=== PATIENT | female | born 1970 | race Caucasian/White ===

== ENCOUNTER 2016-05-09 20:43 | Emergency (ER) | payer SELFPAY ==
[~2016-05-09] VITALS: Ht 160 cm; Wt 59.7 kg
[~2016-05-09 20:43] MED LIST: ZOFR4TAB PO
[2016-05-09 20:50] VITALS: BP 104/71; PULSE 77; RESP 18; TEMP 99.7; O2SAT 97
[2016-05-09] MEDS ORDERED: SODIUM CHLOR 0.9% 1000 ML INJ 1,000 ML IV SCH (22:33)
--- NOTE | 2016-05-09 22:38 | PD ---
HPI . Abdominal pain Chief Complaint: Abdominal Pain Time Seen by Provider: 22:28 Travel History International Travel<30 days: No Contact w/Intl Traveler<30days: No Traveled to known affect area: No History of Present Illness HPI Patient presents with a one day history of generalized abdominal pain associated with vomiting and diarrhea. She has had a subjective fever. She denies any urinary tract symptoms. She states she has not taken anything for it prior to arrival. She reports 7 episodes of emesis and 8-9 episodes of diarrhea. [id number]: Abdominal QUALITY: Cramping DURATION: 12+ hours TIMING: Continuous MODIFYING FACTORS: No exacerbating or relieving symptoms ASSOCIATED SYMPTOMS: Fever, vomiting and diarrhea PFSH Past Medical History Anxiety: Yes Depression: Yes (POST ) Diminished Hearing: No Genitourinary: Yes (FREQUANT UTI'S) ?: Not Past Surgical History Section: Yes Hysterectomy: Yes Social History Alcohol Use: No (FORMER) Tobacco Use: Yes (5-6 CIG/DAY) Substance Use: No Allergies-Medications (Allergen,Severity, Reaction): Coded Allergies: Penicillin (Verified Allergy, Intermediate, SWELLING, 05/09/16) Reported Meds & Prescriptions Reported Meds & Active Scripts Active Reported Multi-Vitamin Daily (Multiple Vitamin) 1 Tab Tab 1 Tab PO DAILY Lexapro (Escitalopram Oxalate) 10 Mg Tab 10 Mg PO DAILY Review of Systems Except as stated in HPI: all other systems reviewed are Neg General / Constitutional: Positive: Fever, Chills Respiratory: No: Cough, Shortness of Breath Gastrointestinal: Positive: Nausea, Vomiting, Diarrhea, Abdominal Pain Genitourinary: No: Urgency, Frequency, Dysuria Physical Exam Narrative GENERAL: Healthy-appearing woman who is in no acute distress. SKIN: Warm and dry. HEAD: Atraumatic. Normocephalic. EYES: Pupils equal and round. ENT: No nasal bleeding or discharge. Mucous membranes pink and moist. NECK: Trachea midline. Neck is supple. CARDIOVASCULAR: Regular rate and rhythm. Heart sounds are normal. RESPIRATORY: No accessory muscle use. Lungs are clear with full air movement throughout. GASTROINTESTINAL: Abdomen soft. Diffusely tender. No guarding or rebound. Nondistended. Positive bowel sounds. No CVA tenderness. MUSCULOSKELETAL: No obvious deformities. No edema. NEUROLOGICAL: Awake and alert. No obvious cranial nerve deficits. Motor grossly within normal limits. Normal speech. PSYCHIATRIC: Appropriate mood and affect; insight and judgment normal. Data Data Last Documented VS Vital Signs Date Time Temp Pulse Resp B/P Pulse Ox O2 Delivery O2 Flow Rate FiO2 05/09/16 20:50 99.7 77 18 104/71 97 Orders Complete Blood Count With Diff (05/09/16 22:33) Comprehensive Metabolic Panel (05/09/16 22:33) Urinalysis - C+S If Indicated (05/09/16 22:33) Iv Access Insert/Monitor (05/09/16 22:33) Morphine Inj (Morphine Inj) (05/09/16 22:45) Ondansetron Inj (Zofran Inj) (05/09/16 22:45) Sodium Chlor 0.9% 1000 Ml Inj (Ns 1000 M (05/09/16 22:33) Sodium Chloride 0.9% Flush (Ns Flush) (05/09/16 22:45) Ed Urine Pregnancytest Poc (05/09/16 22:33) Labs Laboratory Tests Test 05/09/16 05/09/16 22:50 22:55 White Blood Count 5.5 TH/MM3 Red Blood Count 4.55 MIL/MM3 Hemoglobin 14.3 GM/DL Hematocrit 42.6 % Mean Corpuscular Volume 93.8 FL Mean Corpuscular Hemoglobin 31.4 PG Mean Corpuscular Hemoglobin 33.5 % Concent Red Cell Distribution Width 12.3 % Platelet Count 226 TH/MM3 Mean Platelet Volume 6.9 FL Neutrophils (%) (Auto) 73.5 % Lymphocytes (%) (Auto) 20.4 % Monocytes (%) (Auto) 2.7 % Eosinophils (%) (Auto) 1.6 % Basophils (%) (Auto) 1.8 % Neutrophils # (Auto) 4.1 TH/MM3 Lymphocytes # (Auto) 1.1 TH/MM3 Monocytes # (Auto) 0.1 TH/MM3 Eosinophils # (Auto) 0.1 TH/MM3 Basophils # (Auto) 0.1 TH/MM3 CBC Comment DIFF FINAL Differential Comment Sodium Level 143 MEQ/L Potassium Level 3.5 MEQ/L Chloride Level 109 MEQ/L Carbon Dioxide Level 25.5 MEQ/L Anion Gap 9 MEQ/L Blood Urea Nitrogen 12 MG/DL Creatinine 0.62 MG/DL Estimat Glomerular Filtration 103 ML/MIN Rate Random Glucose 113 MG/DL Calcium Level 8.3 MG/DL Total Bilirubin 0.6 MG/DL Aspartate Amino Transf 14 U/L (AST/SGOT) Alanine Aminotransferase 17 U/L (ALT/SGPT) Alkaline Phosphatase 41 U/L Total Protein 6.6 GM/DL Albumin 3.5 GM/DL Urine Collection Type CLEAN CATCH Urine Color CARLEE Urine Turbidity CLEAR Urine pH 6.0 Urine Specific [place] 1.029 Urine Protein TRACE mg/dL Urine Glucose (UA) NEG mg/dL Urine Ketones TRACE mg/dL Urine Occult Blood NEG Urine Nitrite NEG Urine Bilirubin NEG Urine Leukocyte Esterase NEG Urine RBC 0-3 /hpf Urine Squamous Epithelial 0-5 /hpf Cells Urine Mucus MOD /lpf Microscopic Urinalysis Comment CULT NOT INDICATED MDM Medical Decision Making Medical Screen Exam Complete: Yes Emergency Medical Condition: Yes Differential Diagnosis Differential diagnosis of abdominal pain includes but is not limited to gastritis, pancreatitis, hepatitis, gastroenteritis, gallbladder disease, constipation, urinary retention, UTI, peptic ulcer disease, diverticulitis or appendicitis Narrative Course Patient presents with generalized abdominal pain associated with vomiting and diarrhea. She likely has viral gastroenteritis. CBC & BMP Diagram 05/09/16 22:50 LFTs are normal. UA is negative for infection. Diagnosis Primary Impression: Gastroenteritis Patient Instructions: Gastroenteritis (DC), General Instructions Med/Other Pt SpecificInfo: Prescription(s) given Scripts Promethazine (Phenergan)25 Mg Tab25 Mg PO Q6H PRN (Nausea/Vomiting) #10 TAB Ref 0 Prov:Evonne Kunz MD 05/09/16 Disposition: 01 DISCHARGE HOME Condition: Stable Evonne Kunz MD May 09, 2016 22:38
[2016-05-09] MEDS ORDERED: MORPHINE SULFATE 4 MG/ML INJ IV PUSH ONE (22:45)
[2016-05-09] MEDS ORDERED: SODIUM CHLORIDE 0.9% FLUSH 10 ML FLUSH IV FLUSH PRN (22:45)
[2016-05-09] MEDS ORDERED: ONDANSETRON HCL 4 MG/2 ML VIAL IVP ONE (22:45)
[2016-05-09 23:01] LABS: AUTOMATED NEUTROPHIL # 4.1 TH/MM3 (1.8-7.7); BASOPHIL # 0.1 TH/MM3 (0-0.2); BASOPHIL % 1.8 % (0.0-2.0); EOSINOPHIL # 0.1 TH/MM3 (0-0.4); EOSINOPHIL % 1.6 % (0.0-4.0); HEMATOCRIT 42.6 % (35.0-46.0); HEMO FLAGS DIFF FINAL; LYMPH % 20.4 % (9.0-44.0); LYMPHOCYTE # 1.1 TH/MM3 (1.0-4.8); MEAN CELL VOLUME 93.8 FL (80.0-100.0); MEAN CORPUSCULAR HEMOGLOBIN 31.4 PG (27.0-34.0); MEAN CORPUSCULAR HGB CONC 33.5 % (32.0-36.0); MONO % 2.7 % (0.0-8.0); NEUT % 73.5 % (16.0-70.0); PLATELET COUNT 226 TH/MM3 (150-450); RED BLOOD COUNT 4.55 MIL/MM3 (4.00-5.30); RED CELL DISTRIBUTION WIDTH 12.3 % (11.6-17.2); WHITE BLOOD COUNT 5.5 TH/MM3 (4.0-11.0)
[2016-05-09 23:05] LABS: BLOOD, URINE NEG (NEG); GLUCOSE,URINE NEG (NEG); KETONE, URINE TRACE mg/dL (NEG); NITRITE,URINE NEG (NEG)
[2016-05-09 23:14] LABS: CHLORIDE 109 MEQ/L (98-107); POTASSIUM 3.5 MEQ/L (3.5-5.1); SODIUM (NA) 143 MEQ/L (136-145)
[2016-05-09 23:19] LABS: ANION GAP 9 MEQ/L (5-15); BICARBONATE 25.5 MEQ/L (21.0-32.0); BLOOD UREA NITROGEN 12 MG/DL (7-18)
[2016-05-09 23:21] LABS: METHOD OF COLLECTION CLEAN CATCH; MUCUS URINE MOD /lpf (OCC); SQUAMOUS EPITHELIAL CELL URINE 0-5 /hpf (0-5); URINE COLOR AMBER (YELLW/STRAW)
[2016-05-09 23:22] LABS: ALT (GPT) 17 U/L (10-53); AST (GOT) 14 U/L (15-37); GLOMERULAR FILTRATION RATE 103 ML/MIN (>89)
[2016-05-09 23:22] LABS: COMMENT (UR) CULT NOT INDICATED; CULTURE IF INDICATED CULT NOT INDICATED; RBC, URINE 0-3 /hpf (0-3)
[2016-05-09 23:23] LABS: TOTAL BILIRUBIN ADULT 0.6 MG/DL (0.2-1.0)
[2016-05-09 23:25] LABS: ALKALINE PHOSPHATASE 41 U/L (45-117)
[2016-05-09] MEDS ORDERED: MULT-65 PO (23:25)
[2016-05-09] MEDS ORDERED: LEXA10TA PO (23:25)
[2016-05-09] MEDS ORDERED: PROM25TA5 PO (23:47)
[2016-05-09 23:50] VITALS: BP 106/74; PULSE 72; RESP 20; O2SAT 99
[2016-05-10 00:50] VITALS: BP 105/74
== END 2016-05-10 00:50 | disposition home or self-care (01) ==
LOC: PHED 20:43
DX: K52.9 Noninfective gastroenteritis and colitis, unspecified (principal); F41.9 Anxiety disorder, unspecified; F17.210 Nicotine dependence, cigarettes, uncomplicated; Z88.0 Allergy status to penicillin
CPT/HCPCS: 80053; 81001; 85025; 96374; 96375; 99284; J2270; J2405; J7030

== ENCOUNTER 2016-06-09 09:52 | Emergency (ER) | payer SELFPAY ==
[~2016-06-09] VITALS: Ht 172.7 cm; Wt 58.6 kg
[~2016-06-09 09:52] MED LIST changes: +LEXA10TA PO; +MULT-65 PO; +PROM25TA5 PO; -ZOFR4TAB PO
[2016-06-09 09:55] VITALS: BP 99/70; PULSE 67; RESP 16; TEMP 98.8; O2SAT 98
--- NOTE | 2016-06-09 10:37 | RADHPO ---
EXAM DATE/TIME: 06/09/2016 10:21 [facility] COMPARISON: CHEST PA & LAT, April 27, 2015, 10:01. INDICATIONS : Cough. Sore throat. Aches in chest & back. MEDICAL HISTORY : None. SURGICAL HISTORY : Colon resection. Hysterectomy. ENCOUNTER: Initial ACUITY: 3 days PAIN SCORE: 5/10 LOCATION: chest FINDINGS: PA and lateral views of the chest demonstrate the lungs to be symmetrically aerated without evidence of mass, infiltrate or effusion. The cardiomediastinal contours are unremarkable. Osseous structure s are intact.CONCLUSION: Normal examination. Mac Woods Jr., MD on June 09, 2016 at 10:35 Board Certified Radiologist. This report was verified electronically.
[2016-06-09] MEDS ORDERED: MUCI30TA2 PO (10:40)
[2016-06-09] MEDS ORDERED: BENZ100 PO (10:40)
--- NOTE | 2016-06-09 10:41 | PD ---
HPI Chief Complaint: Cold / Flu Symptoms Time Seen by Provider: 10:00 Travel History International Travel<30 days: No Contact w/Intl Traveler<30days: No Traveled to known affect area: No History of Present Illness HPI Patient 45-year-old female who presents with cough dry for the past 3-4 days. Patient states cough is keeping her up at night which is why she came in. She denies any fevers. Denies any earache or sore throat. Denies any abdominal pain chest pain shortness of breath. Patient states that she is a smoker but has not been able to smoke recently given her illness. States this happened to her in the past she's been diagnosed bronchitis. Symptoms are mild, they are slowly worsening. PFSH Past Medical History Hx Anticoagulant Therapy: No Anxiety: Yes Depression: Yes (POST ) Cardiovascular Problems: No Chemotherapy: No Cerebrovascular Accident: No Diabetes: No Diminished Hearing: No Genitourinary: Yes Respiratory: No Tetanus Vaccination: Unknown Influenza Vaccination: No ?: Not Past Surgical History Section: Yes (x3) Hysterectomy: Yes Social History Alcohol Use: No (social) Tobacco Use: Yes (2-3 CIGS PER DAY ) Substance Use: No Allergies-Medications (Allergen,Severity, Reaction): Coded Allergies: Penicillin (Verified Allergy, Intermediate, SWELLING, 06/09/16) Reported Meds & Prescriptions Reported Meds & Active Scripts Active Tessalon Perles (Benzonatate) 100 Mg Cap 100 Mg PO TID PRN Mucinex DM (Dextromethorphan-Guaifenesin) 30-600 Mg Tab 1 Tab PO BID PRN Reported Multi-Vitamin Daily (Multiple Vitamin) 1 Tab Tab 1 Tab PO DAILY Lexapro (Escitalopram Oxalate) 10 Mg Tab 10 Mg PO DAILY Review of Systems Except as stated in HPI: all other systems reviewed are Neg Physical Exam Narrative GENERAL: Well-nourished, well-developed patient. SKIN: No rash no wound on her person. HEAD: Normocephalic. EYES: No scleral icterus. No injection or drainage. NECK: Supple, trachea midline. No JVD or lymphadenopathy. ENT: TMs clear bilaterally, oropharynx pink and moist. CARDIOVASCULAR: Regular rate and rhythm without murmurs, gallops, or rubs. RESPIRATORY: Breath sounds equal bilaterally. No accessory muscle use. GASTROINTESTINAL: Abdomen soft, non-tender, nondistended. MUSCULOSKELETAL: No cyanosis, or edema. BACK: Nontender without obvious deformity. No CVA tenderness. Data Data Last Documented VS Vital Signs Date Time Temp Pulse Resp B/P Pulse Ox O2 Delivery O2 Flow Rate FiO2 06/09/16 10:55 79 16 100/79 97 06/09/16 10:29 Room Air 06/09/16 09:55 98.8 Orders Chest, Pa & Lat (06/09/16 ) MDM Medical Decision Making Medical Screen Exam Complete: Yes Emergency Medical Condition: Yes Differential Diagnosis Bronchitis, pneumonia, cough Narrative Course Patient was roomed in emergency department, she appears well in no apparent distress. Chest x-ray was negative. There is no indication for an box at this time. Discussed symptomatically management and return to ED criteria. Discussed need for follow-up the primary care physician and recommended smoking cessation. Diagnosis Primary Impression: Bronchitis Additional Instructions: Recommends stopping smoking, smoking carries with it several adverse health risks including heart attack stroke cancers and chronic lung disease. It is difficult to quit smoking and most smokers have problems quitting initially this should not discourage her from trying to quit again. Med/Other Pt SpecificInfo: Prescription(s) given Scripts Benzonatate (Tessalon Perles)100 Mg Ecd025 Mg PO TID PRN (COUGH) #20 CAP Ref 0 Prov:Ralph Hurd MD 06/09/16 Dextromethorphan-Guaifenesin (Mucinex DM)30-600 Mg Tab1 Tab PO BID PRN (CHEST CONGESTION AND/OR COUGH) #30 TAB Ref 0 Prov:Ralph Hurd MD 06/09/16 Disposition: 01 DISCHARGE HOME Condition: Stable Ralph Hurd MD June 09, 2016 10:41
[2016-06-09 10:55] VITALS: BP 100/79
== END 2016-06-09 10:55 | disposition home or self-care (01) ==
LOC: PHED 09:52
DX: J40 Bronchitis, not specified as acute or chronic (principal); Z72.0 Tobacco use
CPT/HCPCS: 71020; 99283

== ENCOUNTER 2016-12-17 18:51 | Emergency (ER) | payer SELFPAY ==
[~2016-12-17] VITALS: Ht 160 cm; Wt 58.8 kg
[~2016-12-17 18:51] MED LIST changes: +BENZ100 PO; +HUMIBIDDM PO; -PROM25TA5 PO
[2016-12-17 19:17] VITALS: BP 125/62; PULSE 50; RESP 18; TEMP 98.2; O2SAT 99
[2016-12-17 19:51] VITALS: BP 128/62; PULSE 97; RESP 16; O2SAT 100
[2016-12-17] MEDS ORDERED: SODIUM CHLOR 0.9% 1000 ML INJ 1,000 ML IV ONE (20:45)
[2016-12-17] MEDS ORDERED: ONDANSETRON HCL 4 MG/2 ML VIAL IV PUSH ONE (20:45)
--- NOTE | 2016-12-17 22:08 | RADRPT ---
EXAM DATE/TIME: 12/17/2016 21:46 [facility] COMPARISON: No previous studies available for comparison. INDICATIONS : Cephalgia. RADIATION DOSE: 63.60 CTDIvol (mGy) MEDICAL HISTORY : None SURGICAL HISTORY : Hysterectomy. ENCOUNTER: Initial ACUITY: 1 day PAIN SCALE: 10/10 LOCATION: cranial TECHNIQUE: Multiple contiguous axial images were obtained of the head. Using automated exposure control and adj ustment of the mA and/or kV according to patient size, radiation dose was kept as low as reasonably a chievable to obtain optimal diagnostic quality images. DICOM format image data is available electro nically for review and comparison. FINDINGS: CEREBRUM: The ventricles are normal. No evidence of midline shift, mass lesion, hemorrhage or acute infarction . No extra-axial fluid collections are seen. POSTERIOR FOSSA: The cerebellum and brainstem are intact. The 4th ventricle is midline. The cerebellopontine angle i s unremarkable. EXTRACRANIAL: The visualized portion of the orbits is intact. SKULL: The calvaria is intact. No evidence of skull fracture. CONCLUSION: Negative noncontrast head CT. Terence Plunkett MD on December 17, 2016 at 22:04 Board Certified Radiologist. This report was verified electronically.
[2016-12-17] MEDS ORDERED: KETOROLAC TROMETHAMINE 30 MG/ML (IVP) VIAL IV PUSH ONE (22:15)
[2016-12-17 22:33] VITALS: BP 122/59; PULSE 45; PULSE 52; RESP 12; O2SAT 97
--- NOTE | 2016-12-17 22:58 | PD ---
HPI Chief Complaint: Back/ Neck Pain or Injury Time Seen by Provider: 20:34 Travel History International Travel<30 days: No Contact w/Intl Traveler<30days: No Traveled to known affect area: No History of Present Illness HPI 46-year-old female with right-sided headache since yesterday not sudden onset not thunderclap or persistent and 8/10 intensity. No upper extremity or lower extremity numbness tingling or weakness or ataxia of gait. No change in mentation. No visual disturbance Some mild photophobia. No double vision or loss of vision. No trauma no recent febrile illness or respiratory illness. Patient denies any neck pain or stiffness. Patient does complain of scalp tenderness. Patient has some pain behind the right eye. No scotomata. Patient states took a one-time dose of Aleve without relief. No family history of migraine or intracranial bleed/aneurysm. PFSH Past Medical History Medical History: Denies Significant Hx Hx Anticoagulant Therapy: No Anxiety: Yes Depression: Yes (POST ) Cardiovascular Problems: No Chemotherapy: No Cerebrovascular Accident: No Diabetes: No Diminished Hearing: No Genitourinary: Yes Respiratory: No Tetanus Vaccination: < 5 Years Influenza Vaccination: No ?: Not Past Surgical History Section: Yes (x3) Gynecologic Surgery: Yes (partial hysterectomy) Hysterectomy: Yes Social History Alcohol Use: No (social) Tobacco Use: No Substance Use: No Allergies-Medications (Allergen,Severity, Reaction): Coded Allergies: penicillin G (Unverified Allergy, Intermediate, SWELLING, 12/17/16) Reported Meds & Prescriptions Reported Meds & Active Scripts Active No Active Prescriptions or Reported Medications Review of Systems Except as stated in HPI: all other systems reviewed are Neg General / Constitutional: No: Fever, Chills Eyes: Positive: Photophobia, No: Diploplia, Blurred Vision HENT: Positive: Headaches, No: Neck Stiffness, Neck Pain Cardiovascular: No: Chest Pain or Discomfort Respiratory: No: Shortness of Breath Gastrointestinal: No: Vomiting, Diarrhea Genitourinary: No: Dysuria, Flank Pain Musculoskeletal: No: Myalgias, Arthralgias Skin: No Rash Neurologic: Positive: Headache, No: Weakness, Dizziness, Syncope, Focal Abnormalities, Coordination Problem, Change in Mentation, Slurred Speech Psychiatric: No: Anxiety Hematologic/Lymphatic: No: Lymph Node Enlargement Physical Exam Narrative GENERAL: Well-developed well-nourished female in no acute distress no respiratory distress; GCS 15 SKIN: Warm and dry. HEAD: Atraumatic. Normocephalic. EYES: Pupils equal and round. No scleral icterus. No injection or drainage. No papilledema by funduscopic exam. ENT: No nasal bleeding or discharge. Mucous membranes pink and moist. NECK: Trachea midline. No JVD. Supple no meningismus no nuchal rigidity. CARDIOVASCULAR: Regular rate and rhythm. RESPIRATORY: No accessory muscle use. Clear to auscultation. Breath sounds equal bilaterally. GASTROINTESTINAL: Abdomen soft, non-tender, nondistended. Hepatic and splenic margins not palpable. MUSCULOSKELETAL: Extremities without clubbing, cyanosis, or edema. No obvious deformities. NEUROLOGICAL: Awake and alert. No obvious cranial nerve deficits. Motor grossly within normal limits. Five out of 5 muscle strength in the arms and legs. Normal speech. PSYCHIATRIC: Appropriate mood and affect; insight and judgment normal. Data Data Last Documented VS Vital Signs Date Time Temp Pulse Resp B/P (MAP) Pulse Ox O2 Delivery O2 Flow Rate FiO2 12/17/16 22:33 52 12 122/59 (80) 97 Room Air 12/17/16 19:[address] Brain W/O Iv Contrast(Rout) (12/17/16 ) Ondansetron Inj (Zofran Inj) (12/17/16 20:45) Sodium Chlor 0.9% 1000 Ml Inj (Ns 1000 M (12/17/16 20:45) Ketorolac Inj (Toradol Inj) (12/17/16 22:15) Ed Discharge Order (12/17/16 23:21) [facility] Medical Decision Making Medical Screen Exam Complete: Yes Emergency Medical Condition: Yes Medical Record Reviewed: Yes Interpretation(s) Last Impressions Head CT 12/17/16 0000 Signed Impressions: Service Date/Time: Saturday, December 17, 2016 21:46 - CONCLUSION: Negative noncontrast head CT. 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 Toradol 30 mg IV Diagnosis Primary Impression: Cephalgia Referrals: Primary Care Physician call for appointment Patient Instructions: General Instructions Additional Instructions: Increase fluid hydration Takes Zofran as prescribed as needed for nausea and/or vomiting Take ibuprofen/Advil/Motrin 600 mg as often as every 6 hours as needed for pain associated with inflammation for fever 100.4F or greater May take acetaminophen/Tylenol as often as every 4-6 hours as needed for fever 100.4F or greater or for minor pain Return to the emergency department for any concerns or change in condition follow-up with your primary care provider Med/Other Pt SpecificInfo: Prescription(s) given, No Meds Exist/No RX given Scripts Ondansetron Odt (Zofran Odt) 4 Mg Tab 4 MG SL Q6HR Y for Nausea/Vomiting, #10 TAB 0 Refills Prov: Gosia Ko MD 12/17/16 Disposition: 01 DISCHARGE HOME Condition: Stable Gosia Ko MD Dec 17, 2016 22:58
[2016-12-17] MEDS ORDERED: ZOFR4TAB3 SL (23:25)
[2016-12-17 23:34] VITALS: BP 120/72; TEMP 97.7
== END 2016-12-17 23:47 | disposition home or self-care (01) ==
LOC: PHED 18:51
DX: R51 Headache (principal); H53.149 Visual discomfort, unspecified; H57.11 Ocular pain, right eye
CPT/HCPCS: 70450; 96361; 96374; 96375; 99285; J1885; J2405; J7030

== ENCOUNTER 2017-05-05 16:14 | Emergency (ER) | payer SELFPAY ==
[~2017-05-05] VITALS: Ht 160 cm; Wt 57.0 kg
[~2017-05-05 16:14] MED LIST changes: -BENZ100 PO; -HUMIBIDDM PO; -LEXA10TA PO; -MULT-65 PO; +ZOFR4TAB3 SL
[2017-05-05 16:25] VITALS: BP 108/64; PULSE 73; RESP 16; TEMP 97.8; O2SAT 99
[2017-05-05] MEDS ORDERED: SODIUM CHLOR 0.9% 1000 ML INJ 1,000 ML IV SCH (16:59)
[2017-05-05] MEDS ORDERED: SODIUM CHLORIDE 0.9% FLUSH 10 ML FLUSH IV FLUSH PRN (17:00)
[2017-05-05] MEDS ORDERED: ALUMINUM/MAGNESIUM/SIMETH 30 ML CUP PO ONE (17:00)
[2017-05-05] MEDS ORDERED: ONDANSETRON HCL 4 MG/2 ML VIAL IVP ONE (17:00)
[2017-05-05] MEDS ORDERED: LIDOCAINE VISCOUS 2% SOLN 15 ML UDC PO ONE (17:00)
[2017-05-05] MEDS ORDERED: KETOROLAC TROMETHAMINE 30 MG/ML (IVP) VIAL IVP ONE (17:00)
[2017-05-05] MEDS ORDERED: ZOFR4TAB3 SL (17:08)
--- NOTE | 2017-05-05 17:08 | PD ---
HPI Chief Complaint: GI Complaint Time Seen by Provider: 16:48 Travel History International Travel<30 days: No Contact w/Intl Traveler<30days: No Traveled to known affect area: No History of Present Illness HPI 46-year-old female complains of abdominal pain for about 1 day. She also has nausea vomiting diarrhea. 4 episodes of vomiting and at least 10 episodes of diarrhea reported. Both were nonbloody. She denies fever. Abdominal pain is epigastric in location. One prior episode has occurred. No unusual food. No abnormal vaginal bleeding. Associated symptoms include decreased appetite. PFSH Past Medical History Hx Anticoagulant Therapy: No Anxiety: Yes Depression: Yes (POST ) Cardiovascular Problems: No Chemotherapy: No Cerebrovascular Accident: No Diabetes: No Diminished Hearing: No Genitourinary: Yes Respiratory: No Past Surgical History Section: Yes (x3) Gynecologic Surgery: Yes (partial hysterectomy) Hysterectomy: Yes Social History Alcohol Use: No (social) Tobacco Use: No Substance Use: No Allergies-Medications (Allergen,Severity, Reaction): Coded Allergies: penicillin G (Unverified Allergy, Intermediate, SWELLING, 05/05/17) Reported Meds & Prescriptions Reported Meds & Active Scripts Active Zofran Odt (Ondansetron Odt) 4 Mg Tab 4 Mg SL Q6HR PRN Reported Multi-Vitamin Daily (Multiple Vitamin) 1 Tab Tab 1 Tab PO DAILY Review of Systems Except as stated in HPI: all other systems reviewed are Neg General / Constitutional: No: Fever Physical Exam Narrative GENERAL: 46-year-old female pleasant well-nourished well-developed Vital Signs Date Time Temp Pulse Resp B/P (MAP) Pulse Ox O2 Delivery O2 Flow Rate FiO2 05/05/17 16:25 97.8 73 16 108/64 (79) 99 SKIN: Warm and dry. HEAD: Atraumatic. Normocephalic. EYES: Pupils equal and round. No scleral icterus. No injection or drainage. ENT: No nasal bleeding or discharge. Mucous membranes pink and moist. NECK: Trachea midline. No JVD. CARDIOVASCULAR: Regular rate and rhythm. RESPIRATORY: No accessory muscle use. Clear to auscultation. Breath sounds equal bilaterally. GASTROINTESTINAL: Soft. Minimal tenderness in the epigastric abdomen. MUSCULOSKELETAL: Extremities without clubbing, cyanosis, or edema. No obvious deformities. NEUROLOGICAL: Awake and alert. No obvious cranial nerve deficits. Motor grossly within normal limits. Five out of 5 muscle strength in the arms and legs. Normal speech. PSYCHIATRIC: Appropriate mood and affect; insight and judgment normal. Data Data Last Documented VS Vital Signs Date Time Temp Pulse Resp B/P (MAP) Pulse Ox O2 Delivery O2 Flow Rate FiO2 05/05/17 18:44 60 15 108/56 (73) 100 05/05/17 17:31 Room Air 05/05/17 16:25 97.8 Orders Orders Complete Blood Count With Diff (05/05/17 16:59) Comprehensive Metabolic Panel (05/05/17 16:59) Lipase (05/05/17 16:59) Urinalysis - C+S If Indicated (05/05/17 16:59) Iv Access Insert/Monitor (05/05/17 16:59) Ecg Monitoring (05/05/17 16:59) Oximetry (05/05/17 16:59) Ondansetron Inj (Zofran Inj) (05/05/17 17:00) Sodium Chlor 0.9% 1000 Ml Inj (Ns 1000 M (05/05/17 16:59) Sodium Chloride 0.9% Flush (Ns Flush) (05/05/17 17:00) Ketorolac Inj (Toradol Inj) (05/05/17 17:00) Al-Mag Hy-Si 40-40-4 Mg/Ml Liq (Mag-Al P (05/05/17 17:00) Lidocaine 2% Viscous (Xylocaine 2% Visco (05/05/17 17:00) Ed Urine Pregnancytest Poc (05/05/17 16:59) Ed Discharge Order (05/05/17 18:10) Labs Laboratory Tests Test 05/05/17 17:15 White Blood Count 6.1 TH/MM3 Red Blood Count 4.50 MIL/MM3 Hemoglobin 14.0 GM/DL Hematocrit 42.4 % Mean Corpuscular Volume 94.2 FL Mean Corpuscular Hemoglobin 31.2 PG Mean Corpuscular Hemoglobin Concent 33.1 % Red Cell Distribution Width 12.0 % Platelet Count 257 TH/MM3 Mean Platelet Volume 6.8 FL Neutrophils (%) (Auto) 50.8 % Lymphocytes (%) (Auto) 41.4 % Monocytes (%) (Auto) 4.7 % Eosinophils (%) (Auto) 0.7 % Basophils (%) (Auto) 2.4 % Neutrophils # (Auto) 3.2 TH/MM3 Lymphocytes # (Auto) 2.5 TH/MM3 Monocytes # (Auto) 0.3 TH/MM3 Eosinophils # (Auto) 0.0 TH/MM3 Basophils # (Auto) 0.1 TH/MM3 CBC Comment DIFF FINAL Differential Comment Urine Collection Type CLEAN CATCH Urine Color YELLOW Urine Turbidity CLEAR Urine pH 7.5 Urine Specific [place] 1.010 Urine Protein NEG mg/dL Urine Glucose (UA) NEG mg/dL Urine Ketones NEG mg/dL Urine Occult Blood NEG Urine Nitrite NEG Urine Bilirubin NEG Urine Urobilinogen 0.2 MG/DL Urine Leukocyte Esterase NEG Urine RBC 0-3 /hpf Urine WBC 0-2 /hpf Urine Squamous Epithelial Cells 0-5 /hpf Microscopic Urinalysis Comment CULT NOT INDICATED Urine Collection Time 17:15 Blood Urea Nitrogen 8 MG/DL Creatinine 0.71 MG/DL Random Glucose 71 MG/DL Total Protein 7.6 GM/DL Albumin 3.8 GM/DL Calcium Level 8.7 MG/DL Alkaline Phosphatase 45 U/L Aspartate Amino Transf (AST/SGOT) 12 U/L Alanine Aminotransferase (ALT/SGPT) 14 U/L Total Bilirubin 0.5 MG/DL Sodium Level 139 MEQ/L Potassium Level 3.9 MEQ/L Chloride Level 109 MEQ/L Carbon Dioxide Level 27.0 MEQ/L Anion Gap 3 MEQ/L Estimat Glomerular Filtration Rate 88 ML/MIN Lipase 132 U/L MDM Medical Decision Making Medical Screen Exam Complete: Yes Emergency Medical Condition: Yes Medical Record Reviewed: Yes Differential Diagnosis Gastritis, pancreatitis, appendicitis, acute cholecystitis, ascending cholangitis, AAA, perforated viscous, mesenteric ischemia, hepatitis, cystitis, hydronephrosis/hydroureter/nephroureter calculus, mesenteric adenitis, biliary colic Narrative Course CBC & BMP Diagram 05/05/17 17:15 Total Protein 7.6, Albumin 3.8, Calcium Level 8.7, Alkaline Phosphatase 45, Aspartate Amino Transf (AST/SGOT) 12 L, Alanine Aminotransferase (ALT/SGPT) 14, Total Bilirubin 0.5 UA: No UTI Workup is fairly nonspecific. Nature of the presenting complaint fairly nonspecific as well and upon review of prior visits it appears patient has been seen her before with similar presentations and also with normal workups. Symptoms improved. Zofran prescription. Patient ready for discharge. Diagnosis Primary Impression: Gastroenteritis Additional Impression: Nonspecific abdominal pain Med/Other Pt SpecificInfo: Prescription(s) given Scripts Ondansetron Odt (Zofran Odt) 4 Mg Tab 4 MG SL Q6HR Y for Nausea/Vomiting, #10 TAB 0 Refills Prov: Giovany Acosta MD 05/05/17 Disposition: 01 DISCHARGE HOME Condition: Stable Giovany Acosta MD May 05, 2017 17:08
[2017-05-05 17:22] LABS: BILIRUBIN, URINE NEG (NEG); BLOOD, URINE NEG (NEG); GLUCOSE,URINE NEG (NEG); KETONE, URINE NEG (NEG); NITRITE,URINE NEG (NEG); PH, URINE 7.5 (5.0-8.5); URINE COLOR YELLOW (YELLW/STRAW); URINE LEUKOCYTE ESTERASE NEG (NEG)
[2017-05-05 17:24] LABS: AUTOMATED NEUTROPHIL # 3.2 TH/MM3 (1.8-7.7); BASOPHIL # 0.1 TH/MM3 (0-0.2); BASOPHIL % 2.4 % (0.0-2.0); EOSINOPHIL % 0.7 % (0.0-4.0); HEMATOCRIT 42.4 % (35.0-46.0); LYMPH % 41.4 % (9.0-44.0); LYMPHOCYTE # 2.5 TH/MM3 (1.0-4.8); MEAN CELL VOLUME 94.2 FL (80.0-100.0); MEAN CORPUSCULAR HEMOGLOBIN 31.2 PG (27.0-34.0); MEAN CORPUSCULAR HGB CONC 33.1 % (32.0-36.0); MEAN PLATELET VOLUME 6.8 FL (7.0-11.0); MONO % 4.7 % (0.0-8.0); MONOCYTE # 0.3 TH/MM3 (0-0.9); NEUT % 50.8 % (16.0-70.0); PLATELET COUNT 257 TH/MM3 (150-450); WHITE BLOOD COUNT 6.1 TH/MM3 (4.0-11.0)
[2017-05-05 17:29] LABS: RBC, URINE 0-3 /hpf (0-3); SQUAMOUS EPITHELIAL CELL URINE 0-5 /hpf (0-5); WBC, URINE 0-2 /hpf (0-5)
[2017-05-05 17:31] VITALS: RESP 16; O2SAT 100
[2017-05-05 17:33] LABS: CHLORIDE 109 MEQ/L (98-107); SODIUM (NA) 139 MEQ/L (136-145)
[2017-05-05 17:37] LABS: ALBUMIN 3.8 GM/DL (3.4-5.0); CALCIUM 8.7 MG/DL (8.5-10.1); GLUCOSE,RANDOM 71 MG/DL (74-106)
[2017-05-05 17:38] LABS: BLOOD UREA NITROGEN 8 MG/DL (7-18)
[2017-05-05] MEDS ORDERED: MULT-65 PO (17:38)
[2017-05-05 17:40] LABS: ALT (GPT) 14 U/L (10-53); AST (GOT) 12 U/L (15-37); CREATININE 0.71 MG/DL (0.50-1.00); GLOMERULAR FILTRATION RATE 88 ML/MIN (>89)
[2017-05-05 17:42] LABS: TOTAL BILIRUBIN ADULT 0.5 MG/DL (0.2-1.0); TOTAL PROTEIN 7.6 GM/DL (6.4-8.2)
[2017-05-05 17:43] LABS: ALKALINE PHOSPHATASE 45 U/L (45-117)
[2017-05-05 18:44] VITALS: BP 108/56
== END 2017-05-05 18:50 | disposition home or self-care (01) ==
LOC: PHED 16:14
DX: K52.9 Noninfective gastroenteritis and colitis, unspecified (principal); F41.9 Anxiety disorder, unspecified; F32.9 Major depressive disorder, single episode, unspecified; Z88.0 Allergy status to penicillin
CPT/HCPCS: 80053; 81001; 83690; 84703; 85025; 96361; 96374; 96375; 99284; J1885; J2405; J7030

== ENCOUNTER 2017-05-09 15:32 | Emergency (ER) | payer SELFPAY ==
[~2017-05-09 15:32] MED LIST changes: +MULT-65 PO
[2017-05-09 15:45] VITALS: BP 119/75; PULSE 54; RESP 18; TEMP 98.8; O2SAT 98
[2017-05-09] MEDS ORDERED: LIDOCAINE HCL 1% PF 30 ML VIAL INFIL ONE (16:00)
--- NOTE | 2017-05-09 16:28 | RADRPT ---
EXAM DATE/TIME: 05/09/2017 16:03 [facility] COMPARISON: CHEST PA & LAT, June 09, 2016, 10:21. INDICATIONS : Right hand, third digit laceration. Patient cut finger with a glass bowl. Evaluate for foreign body. MEDICAL HISTORY : None. SURGICAL HISTORY : None. ENCOUNTER: Initial ACUITY: 1 day PAIN SCORE: 6/10 LOCATION: Right hand, thid digit. FINDINGS: Examination of the third digit of the right hand demonstrates no evidence of fracture or dislocation. No radiopaque foreign bodies are seen. The soft tissues are intact. CONCLUSION: 1. No retained foreign body is identified. Giovany Pittman MD on May 09, 2017 at 16:25 Board Certified Radiologist. This report was verified electronically.
--- NOTE | 2017-05-09 17:29 | PD ---
HPI Chief Complaint: Laceration/Skin Injury Time Seen by Provider: 15:54 Travel History International Travel<30 days: No Contact w/Intl Traveler<30days: No Traveled to known affect area: No History of Present Illness HPI 46-year-old right-hand dominant female patient's the ED for laceration of the right third finger. Sustained when the patient attempted to catch a glass bowl that was falling off the counter while at work. On presentation she denies numbness, tingling, weakness, limitations range of motion of the extremity. She has never injured the extremity before. States tetanus immunization updated approximately 2 years ago. PFSH Past Medical History Hx Anticoagulant Therapy: No Anxiety: Yes Depression: Yes (POST ) Cardiovascular Problems: No Chemotherapy: No Cerebrovascular Accident: No Diabetes: No Diminished Hearing: No Genitourinary: Yes (kidney infections ) Respiratory: No ?: Not Past Surgical History Section: Yes (x3) Gynecologic Surgery: Yes (partial hysterectomy) Hysterectomy: Yes (partial ) Social History Alcohol Use: No (social) Tobacco Use: Yes (not every day) Substance Use: No Allergies-Medications (Allergen,Severity, Reaction): Coded Allergies: penicillin G (Unverified Allergy, Intermediate, SWELLING, 05/09/17) Reported Meds & Prescriptions Reported Meds & Active Scripts Active No Active Prescriptions or Reported Medications Review of Systems Except as stated in HPI: all other systems reviewed are Neg Physical Exam Narrative GENERAL: Well-nourished, well-developed female in no acute distress. SKIN: Focused skin assessment warm/dry. There is a 2 cm laceration of the ulnar aspect of the right third digit. No active bleeding. No visible foreign body. HEAD: Normocephalic. EYES: No scleral icterus. No injection or drainage. NECK: Supple, trachea midline. No JVD or lymphadenopathy. CARDIOVASCULAR: Regular rate and rhythm without murmurs, gallops, or rubs. RESPIRATORY: Breath sounds equal bilaterally. No accessory muscle use. GASTROINTESTINAL: Abdomen soft, non-tender, nondistended. MUSCULOSKELETAL: No cyanosis, or edema. FOCUSED RIGHT UPPER EXTREMITY EXAM: 2+ radial pulse. Patient is able to flex and extend the digits of the hand. Sensation intact to light touch distally. Cap refill less than 2 seconds distally. BACK: Nontender without obvious deformity. No CVA tenderness. Data Data Last Documented VS Vital Signs Date Time Temp Pulse Resp B/P (MAP) Pulse Ox O2 Delivery O2 Flow Rate FiO2 05/09/17 15:45 98.8 54 18 119/75 (90) 98 Orders Orders Finger ([id number]) (05/09/17 15:56) Ice/Cold Pack (05/09/17 15:56) Lidocaine Pf 1% Inj (Xylocaine-Mpf 1% In (05/09/17 16:00) Ibuprofen (Motrin) (05/09/17 17:30) Ed Discharge Order (05/09/17 17:31) MDM Medical Decision Making Medical Screen Exam Complete: Yes Emergency Medical Condition: Yes Differential Diagnosis Laceration versus tendinous injury versus need for tetanus immunization versus other Narrative Course 46-year-old [id number] female presents to the ED for evaluation of laceration of the third digit of the right hand. Patient states tetanus is up- to-date. On exam there is a 2 cm laceration on the radial aspect of the distal aspect of the right middle finger. No active bleeding or foreign body noted. X -rays reveal no acute foreign body. Laceration repair was performed. Please see my procedure note for details. Patient's instructed to elevate the extremity, take ibuprofen, keep the wound clean and dry, return in 7 days for suture removal, monitor for signs of infection. She indicated understanding of instructions. The patient is stable and discharged home. Procedures Procedure Narrative LACERATION LOCATION: Third digit right hand, ulnar aspect LENGTH: 2 cm NUMBER OF STITCHES/YOVANI: 4 REPAIR: The area of the laceration was prepped with Betadine and sterilely draped. A digital block was performed with 1% lidocaine. Adequate anesthesia was obtained. The wound was copiously irrigated and explored without evidence of foreign body, tendon injury or neurovascular injury. The wound was closed using 4-0 Prolene. This was a single layer repair. A sterile dressing was applied. The patient was advised to keep the dressing clean and dry. Patient tolerated the procedure well. Diagnosis Primary Impression: Finger laceration Qualified Codes: S61.212A - Laceration without foreign body of right middle finger without damage to nail, initial encounter Referrals: Primary Care Physician Patient Instructions: Care For Your Stitches (DC), General Instructions Additional Instructions: Rest, hydrate. Keep your wound clean, dry and covered. It is okay for water to run over the area but do not submerge the wound. Wash the wound daily, allow to dry thoroughly, apply a small amount of antibiotic ointment. Change the dressing anytime it becomes soiled or wet. Suture removal in 7 days. Monitor for signs of infection as discussed. 600 mg ibuprofen every 8 hours to reduce inflammation and pain. Elevation of the hand will also help to reduce pain. Return to the ED for worsening symptoms or any urgent or emergent medical condition. Scripts No Active Prescriptions or Reported Meds Disposition: 01 DISCHARGE HOME Condition: Stable Geraldine Bhakta May 09, 2017 17:29
[2017-05-09] MEDS ORDERED: IBUPROFEN 600 MG TAB PO ONE (17:30)
== END 2017-05-09 17:55 | disposition home or self-care (01) ==
LOC: PHEFT 15:32
DX: S61.212A Laceration without foreign body of right middle finger without damage to nail, initial encounter (principal); F41.9 Anxiety disorder, unspecified; F32.9 Major depressive disorder, single episode, unspecified; Z88.0 Allergy status to penicillin; Z72.0 Tobacco use; W25.XXXA Contact with sharp glass, initial encounter
CPT/HCPCS: 12001; 73140

== ENCOUNTER 2017-05-24 23:34 | Emergency (ER) | payer SELFPAY ==
[~2017-05-24] VITALS: Ht 160 cm; Wt 57.4 kg
[2017-05-24 23:42] VITALS: BP 136/75; PULSE 83; RESP 18; TEMP 98.6; O2SAT 96
--- NOTE | 2017-05-25 00:01 | PD ---
HPI Chief Complaint: Suicide Ideation/Attempt Time Seen by Provider: 23:47 Travel History International Travel<30 days: No Contact w/Intl Traveler<30days: No Traveled to known affect area: No History of Present Illness HPI The patient is a 46-year-old female who presents to the emergency department for depression. The patient notes a history of depression with previous treatment on Lexapro. However, the patient states Lexapro caused too many side effects and she subsequently stopped taking Lexapro years ago. The patient then lost her apartment in February and has been living with her since she lost her apartment. The patient notes increasing depression because of the multiple changes in her life. The patient states she started drinking alcohol earlier today, approximately 3 shots of vodka, and smoking marijuana. The patient then started having thoughts of suicide. She does not actually have a plan, denies suicidal ideation upon arrival, but would like to talk with a psychiatrist. She does have a history of previous suicide attempt with an overdose in 1995. However, the patient has no current suicidal ideation or plan , though she did have thoughts of harming herself earlier in the day. She denies ingestion of any pills today. She denies any physical complaints. She denies any homicidal ideation. Symptoms are moderate. PFSH Past Medical History Hx Anticoagulant Therapy: No Anxiety: Yes Depression: Yes (POST ) Cardiovascular Problems: No Chemotherapy: No Cerebrovascular Accident: No Diabetes: No Diminished Hearing: No Genitourinary: Yes (kidney infections ) Respiratory: No ?: Not Past Surgical History Section: Yes (x3) Gynecologic Surgery: Yes (partial hysterectomy) Hysterectomy: Yes Social History Alcohol Use: No (social) Tobacco Use: Yes (not every day) Substance Use: No Allergies-Medications (Allergen,Severity, Reaction): Coded Allergies: penicillin G (Unverified Allergy, Intermediate, SWELLING, 05/24/17) Reported Meds & Prescriptions Reported Meds & Active Scripts Active No Active Prescriptions or Reported Medications Review of Systems Except as stated in HPI: all other systems reviewed are Neg Psychiatric: Positive: Depression, Suicidal Ideations (Thoughts of suicide earlier today that have currently resolved), Substance Abuse (Alcohol use and marijuana use today), No: Homicidal Ideation Physical Exam Narrative GENERAL: Awake, alert, tearful 46-year-old female who appears her stated age and is in no acute respiratory distress. SKIN: Focused skin assessment warm/dry. HEAD: Atraumatic. Normocephalic. EYES: Pupils equal and round. No scleral icterus. No injection or drainage. ENT: No nasal bleeding or discharge. Mucous membranes pink and moist. NECK: Trachea midline. No JVD. CARDIOVASCULAR: Regular rate and rhythm. No murmur appreciated. RESPIRATORY: No accessory muscle use. Clear to auscultation. Breath sounds equal bilaterally. MUSCULOSKELETAL: No obvious deformities. No clubbing. No cyanosis. No edema. NEUROLOGICAL: Awake and alert. No obvious cranial nerve deficits. Motor grossly within normal limits. Normal speech. Nonfocal. PSYCHIATRIC: Sad affect, tearful. Data Data Last Documented VS Orders Orders Complete Blood Count With Diff (05/24/17 23:56) Comprehensive Metabolic Panel (05/24/17 23:56) Thyroid Stimulating Hormone (05/24/17 23:56) Psych Screen (05/24/17 23:56) Drug Screen, Random Urine (05/24/17 23:56) Alcohol (Ethanol) (05/24/17 23:56) Ed Discharge Order (05/25/17 01:08) Diet Regular Basic (05/25/17 Breakfast) Diet Regular Basic (05/25/17 Lunch) Labs Laboratory Tests Test 05/25/17 00:11 White Blood Count 5.5 TH/MM3 Red Blood Count 4.29 MIL/MM3 Hemoglobin 13.6 GM/DL Hematocrit 40.4 % Mean Corpuscular Volume 94.0 FL Mean Corpuscular Hemoglobin 31.7 PG Mean Corpuscular Hemoglobin Concent 33.7 % Red Cell Distribution Width 11.6 % Platelet Count 271 TH/MM3 Mean Platelet Volume 6.8 FL Neutrophils (%) (Auto) 49.2 % Lymphocytes (%) (Auto) 40.6 % Monocytes (%) (Auto) 4.8 % Eosinophils (%) (Auto) 1.6 % Basophils (%) (Auto) 3.8 % Neutrophils # (Auto) 2.7 TH/MM3 Lymphocytes # (Auto) 2.2 TH/MM3 Monocytes # (Auto) 0.3 TH/MM3 Eosinophils # (Auto) 0.1 TH/MM3 Basophils # (Auto) 0.2 TH/MM3 CBC Comment DIFF FINAL Differential Comment Blood Urea Nitrogen 8 MG/DL Creatinine 0.70 MG/DL Random Glucose 125 MG/DL Total Protein 7.1 GM/DL Albumin 3.7 GM/DL Calcium Level 8.4 MG/DL Alkaline Phosphatase 44 U/L Aspartate Amino Transf (AST/SGOT) 12 U/L Alanine Aminotransferase (ALT/SGPT) 16 U/L Total Bilirubin 0.3 MG/DL Sodium Level 143 MEQ/L Potassium Level 3.6 MEQ/L Chloride Level 110 MEQ/L Carbon Dioxide Level 25.8 MEQ/L Anion Gap 7 MEQ/L Estimat Glomerular Filtration Rate 89 ML/MIN Thyroid Stimulating Hormone 3rd Gen 0.820 uIU/ML Urine Opiates Screen NEG Urine Barbiturates Screen NEG Urine Amphetamines Screen NEG Urine Benzodiazepines Screen NEG Urine Cocaine Screen NEG Urine Cannabinoids Screen POS Ethyl Alcohol Level 33 MG/DL MDM Medical Decision Making Medical Screen Exam Complete: Yes Emergency Medical Condition: Yes Medical Record Reviewed: Yes Interpretation(s) Laboratory Tests Test 05/25/17 00:11 White Blood Count 5.5 TH/MM3 Red Blood Count 4.29 MIL/MM3 Hemoglobin 13.6 GM/DL Hematocrit 40.4 % Mean Corpuscular Volume 94.0 FL Mean Corpuscular Hemoglobin 31.7 PG Mean Corpuscular Hemoglobin Concent 33.7 % Red Cell Distribution Width 11.6 % Platelet Count 271 TH/MM3 Mean Platelet Volume 6.8 FL Neutrophils (%) (Auto) 49.2 % Lymphocytes (%) (Auto) 40.6 % Monocytes (%) (Auto) 4.8 % Eosinophils (%) (Auto) 1.6 % Basophils (%) (Auto) 3.8 % Neutrophils # (Auto) 2.7 TH/MM3 Lymphocytes # (Auto) 2.2 TH/MM3 Monocytes # (Auto) 0.3 TH/MM3 Eosinophils # (Auto) 0.1 TH/MM3 Basophils # (Auto) 0.2 TH/MM3 CBC Comment DIFF FINAL Differential Comment Blood Urea Nitrogen 8 MG/DL Creatinine 0.70 MG/DL Random Glucose 125 MG/DL Total Protein 7.1 GM/DL Albumin 3.7 GM/DL Calcium Level 8.4 MG/DL Alkaline Phosphatase 44 U/L Aspartate Amino Transf (AST/SGOT) 12 U/L Alanine Aminotransferase (ALT/SGPT) 16 U/L Total Bilirubin 0.3 MG/DL Sodium Level 143 MEQ/L Potassium Level 3.6 MEQ/L Chloride Level 110 MEQ/L Carbon Dioxide Level 25.8 MEQ/L Anion Gap 7 MEQ/L Estimat Glomerular Filtration Rate 89 ML/MIN Thyroid Stimulating Hormone 3rd Gen 0.820 uIU/ML Urine Opiates Screen NEG Urine Barbiturates Screen NEG Urine Amphetamines Screen NEG Urine Benzodiazepines Screen NEG Urine Cocaine Screen NEG Urine Cannabinoids Screen POS Ethyl Alcohol Level 33 MG/DL Differential Diagnosis Differential diagnosis includes depressive disorder NOS, adjustment reaction, stress reaction, mood disorder, substance-induced mood disorder, alcohol intoxication. Narrative Course Labs were drawn and sent. If labs are unremarkable the patient will be transferred to [facility] for further evaluation by psychiatry. The patient was not placed under a New act that she was not suicidal upon arrival and had no suicide plan. Labs are unremarkable. Patient is medically cleared to be evaluated by psychiatry. Disposition as per psych. Diagnosis Primary Impression: Substance induced mood disorder Additional Impression: Depression Qualified Codes: F32.9 - Major depressive disorder, single episode, unspecified Scripts No Active Prescriptions or Reported Meds Condition: Servando Troy MD May 25, 2017 00:01
[2017-05-25 00:38] LABS: AUTOMATED NEUTROPHIL # 2.7 TH/MM3 (1.8-7.7); BASOPHIL # 0.2 TH/MM3 (0-0.2); BASOPHIL % 3.8 % (0.0-2.0); EOSINOPHIL # 0.1 TH/MM3 (0-0.4); EOSINOPHIL % 1.6 % (0.0-4.0); HEMATOCRIT 40.4 % (35.0-46.0); HEMOGLOBIN 13.6 GM/DL (11.6-15.3); LYMPH % 40.6 % (9.0-44.0); LYMPHOCYTE # 2.2 TH/MM3 (1.0-4.8); MEAN CORPUSCULAR HEMOGLOBIN 31.7 PG (27.0-34.0); MEAN CORPUSCULAR HGB CONC 33.7 % (32.0-36.0); MEAN PLATELET VOLUME 6.8 FL (7.0-11.0); MONO % 4.8 % (0.0-8.0); MONOCYTE # 0.3 TH/MM3 (0-0.9); NEUT % 49.2 % (16.0-70.0); PLATELET COUNT 271 TH/MM3 (150-450); RED BLOOD COUNT 4.29 MIL/MM3 (4.00-5.30); RED CELL DISTRIBUTION WIDTH 11.6 % (11.6-17.2); WHITE BLOOD COUNT 5.5 TH/MM3 (4.0-11.0)
[2017-05-25 00:44] LABS: CHLORIDE 110 MEQ/L (98-107); SODIUM (NA) 143 MEQ/L (136-145)
[2017-05-25 00:49] LABS: ALBUMIN 3.7 GM/DL (3.4-5.0); BICARBONATE 25.8 MEQ/L (21.0-32.0); BLOOD UREA NITROGEN 8 MG/DL (7-18); CALCIUM 8.4 MG/DL (8.5-10.1); GLUCOSE,RANDOM 125 MG/DL (74-106)
[2017-05-25 00:52] LABS: ALT (GPT) 16 U/L (10-53); AST (GOT) 12 U/L (15-37); GLOMERULAR FILTRATION RATE 89 ML/MIN (>89)
[2017-05-25 00:54] LABS: TOTAL BILIRUBIN ADULT 0.3 MG/DL (0.2-1.0); TOTAL PROTEIN 7.1 GM/DL (6.4-8.2)
[2017-05-25 00:55] LABS: ALKALINE PHOSPHATASE 44 U/L (45-117)
--- NOTE | 2017-05-25 04:38 | PD ---
HPI Chief Complaint: Suicide Ideation/Attempt Time Seen by Provider: 04:35 Travel History International Travel<30 days: No Contact w/Intl Traveler<30days: No Traveled to known affect area: No History of Present Illness HPI 46-year-old female presents emergency department for evaluation by the psychiatrist. The patient was medically cleared at [facility]. The patient had been drinking alcohol and smoking marijuana earlier. She has been feeling increasingly depressed and having suicidal thoughts. She states that she had been from her but has recently moved back in with him because she had lost her apartment. He has been smoking crack cocaine and drinking alcohol. She states that they have been fighting a lot again. She had hoped to get back together but unfortunately things do not seem that way now. She would like to see a psychiatrist. She denies any active plan of self- harm. No homicidal ideation. No suicidal ideation. PFSH Past Medical History Hx Anticoagulant Therapy: No Anxiety: Yes Depression: Yes (POST ) Cardiovascular Problems: No Chemotherapy: No Cerebrovascular Accident: No Diabetes: No Diminished Hearing: No Genitourinary: Yes (kidney infections ) Respiratory: No Tetanus Vaccination: < 5 Years Influenza Vaccination: No ?: Not : 3 Para: 3 Past Surgical History Section: Yes (x3) Gynecologic Surgery: Yes (partial hysterectomy) Hysterectomy: Yes Social History Alcohol Use: Yes (social) Tobacco Use: Yes (not every day) Substance Use: Yes (Marijuana, 05/24/17) Allergies-Medications (Allergen,Severity, Reaction): Coded Allergies: penicillin G (Unverified Allergy, Intermediate, SWELLING, 05/24/17) Reported Meds & Prescriptions Reported Meds & Active Scripts Active No Active Prescriptions or Reported Medications Review of Systems General / Constitutional: No: Fever Eyes: No: Visual changes HENT: No: Headaches Cardiovascular: No: Chest Pain or Discomfort Respiratory: No: Shortness of Breath Gastrointestinal: No: Abdominal Pain Genitourinary: No: Dysuria Musculoskeletal: No: Pain Skin: No Rash Neurologic: No: Weakness Psychiatric: Positive: Anxiety, Depression, Mood Disorder, Substance Abuse, No : Suicidal Ideations, Disorder of Thought, Homicidal Ideation Endocrine: No: Polydipsia Hematologic/Lymphatic: No: Easy Bruising Physical Exam Narrative GENERAL: Well-nourished, well-developed patient. SKIN: Warm and dry. HEAD: Normocephalic and atraumatic. EYES: No scleral icterus. No injection or drainage. ENT: No nasal drainage noted. Mucous membranes pink. Airway patent. NECK: Supple, trachea midline. Moves head freely without obvious discomfort. CARDIOVASCULAR: Regular rate and rhythm without murmurs, gallops, or rubs. RESPIRATORY: Breath sounds equal bilaterally. No accessory muscle use. GASTROINTESTINAL: Abdomen soft, non-tender, nondistended. EXTREMITIES: No cyanosis or edema. BACK: Nontender without obvious deformity. No CVA tenderness. NEURO: Patient is alert and oriented. no sensorimotor deficits. Nonfocal. Normal speech. PSYCH: No delusions. No auditory or visual hallucinations. Data Data Last Documented VS Vital Signs Date Time Temp Pulse Resp B/P (MAP) Pulse Ox O2 Delivery O2 Flow Rate FiO2 05/25/17 00:02 16 98 Room Air 05/24/17 23:42 98.6 83 136/75 (95) Orders Orders Complete Blood Count With Diff (05/24/17 23:56) Comprehensive Metabolic Panel (05/24/17 23:56) Thyroid Stimulating Hormone (05/24/17 23:56) Psych Screen (05/24/17 23:56) Drug Screen, Random Urine (05/24/17 23:56) Alcohol (Ethanol) (05/24/17 23:56) Ed Discharge Order (05/25/17 01:08) Diet Regular Basic (05/25/17 Breakfast) Labs Laboratory Tests Test 05/25/17 00:11 White Blood Count 5.5 TH/MM3 Red Blood Count 4.29 MIL/MM3 Hemoglobin 13.6 GM/DL Hematocrit 40.4 % Mean Corpuscular Volume 94.0 FL Mean Corpuscular Hemoglobin 31.7 PG Mean Corpuscular Hemoglobin Concent 33.7 % Red Cell Distribution Width 11.6 % Platelet Count 271 TH/MM3 Mean Platelet Volume 6.8 FL Neutrophils (%) (Auto) 49.2 % Lymphocytes (%) (Auto) 40.6 % Monocytes (%) (Auto) 4.8 % Eosinophils (%) (Auto) 1.6 % Basophils (%) (Auto) 3.8 % Neutrophils # (Auto) 2.7 TH/MM3 Lymphocytes # (Auto) 2.2 TH/MM3 Monocytes # (Auto) 0.3 TH/MM3 Eosinophils # (Auto) 0.1 TH/MM3 Basophils # (Auto) 0.2 TH/MM3 CBC Comment DIFF FINAL Differential Comment Blood Urea Nitrogen 8 MG/DL Creatinine 0.70 MG/DL Random Glucose 125 MG/DL Total Protein 7.1 GM/DL Albumin 3.7 GM/DL Calcium Level 8.4 MG/DL Alkaline Phosphatase 44 U/L Aspartate Amino Transf (AST/SGOT) 12 U/L Alanine Aminotransferase (ALT/SGPT) 16 U/L Total Bilirubin 0.3 MG/DL Sodium Level 143 MEQ/L Potassium Level 3.6 MEQ/L Chloride Level 110 MEQ/L Carbon Dioxide Level 25.8 MEQ/L Anion Gap 7 MEQ/L Estimat Glomerular Filtration Rate 89 ML/MIN Thyroid Stimulating Hormone 3rd Gen 0.820 uIU/ML Urine Opiates Screen NEG Urine Barbiturates Screen NEG Urine Amphetamines Screen NEG Urine Benzodiazepines Screen NEG Urine Cocaine Screen NEG Urine Cannabinoids Screen POS Ethyl Alcohol Level 33 MG/DL MDM Medical Decision Making Medical Screen Exam Complete: Yes Emergency Medical Condition: Yes Medical Record Reviewed: Yes Interpretation(s) Laboratory Tests Test 05/25/17 00:11 White Blood Count 5.5 TH/MM3 Red Blood Count 4.29 MIL/MM3 Hemoglobin 13.6 GM/DL Hematocrit 40.4 % Mean Corpuscular Volume 94.0 FL Mean Corpuscular Hemoglobin 31.7 PG Mean Corpuscular Hemoglobin Concent 33.7 % Red Cell Distribution Width 11.6 % Platelet Count 271 TH/MM3 Mean Platelet Volume 6.8 FL Neutrophils (%) (Auto) 49.2 % Lymphocytes (%) (Auto) 40.6 % Monocytes (%) (Auto) 4.8 % Eosinophils (%) (Auto) 1.6 % Basophils (%) (Auto) 3.8 % Neutrophils # (Auto) 2.7 TH/MM3 Lymphocytes # (Auto) 2.2 TH/MM3 Monocytes # (Auto) 0.3 TH/MM3 Eosinophils # (Auto) 0.1 TH/MM3 Basophils # (Auto) 0.2 TH/MM3 CBC Comment DIFF FINAL Differential Comment Blood Urea Nitrogen 8 MG/DL Creatinine 0.70 MG/DL Random Glucose 125 MG/DL Total Protein 7.1 GM/DL Albumin 3.7 GM/DL Calcium Level 8.4 MG/DL Alkaline Phosphatase 44 U/L Aspartate Amino Transf (AST/SGOT) 12 U/L Alanine Aminotransferase (ALT/SGPT) 16 U/L Total Bilirubin 0.3 MG/DL Sodium Level 143 MEQ/L Potassium Level 3.6 MEQ/L Chloride Level 110 MEQ/L Carbon Dioxide Level 25.8 MEQ/L Anion Gap 7 MEQ/L Estimat Glomerular Filtration Rate 89 ML/MIN Thyroid Stimulating Hormone 3rd Gen 0.820 uIU/ML Urine Opiates Screen NEG Urine Barbiturates Screen NEG Urine Amphetamines Screen NEG Urine Benzodiazepines Screen NEG Urine Cocaine Screen NEG Urine Cannabinoids Screen POS Ethyl Alcohol Level 33 MG/DL Differential Diagnosis MDM: High Differential diagnoses: Schizophrenia, schizoaffective disorder, bipolar, anxiety, depression, adjustment reaction, mood disorder NOS, ODD, depressive disorder NOS, substance-induced mood disorder, infection,electrolyte abnormality , malingering. Narrative Course Mental health screening discussed with the patient. Psychiatric screen ordered. The patient has been medically cleared. The patient will be evaluated by the psych screener. This medical clearance for psychiatric admission, substance-induced mood disorder Diagnosis Primary Impression: Substance induced mood disorder Additional Impression: Depression Qualified Codes: F32.9 - Major depressive disorder, single episode, unspecified Scripts No Active Prescriptions or Reported Meds Condition: Mac Contreras May 25, 2017 04:38
[2017-05-25 06:04] VITALS: BP 139/79; PULSE 53; RESP 16; TEMP 97.1; O2SAT 100
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
== END 2017-05-25 15:19 | disposition home or self-care (01) ==
LOC: PHED 23:34 → NEPJ 05-25 15:19
DX: F43.23 Adjustment disorder with mixed anxiety and depressed mood (principal); F19.94 Other psychoactive substance use, unspecified with psychoactive substance-induced mood disorder; Z72.0 Tobacco use
CPT/HCPCS: 80053; 80307; 84443; 85025; 99283